=== PATIENT | female | born 1935 | race Caucasian/White ===

== ENCOUNTER 2017-01-19 13:47 | Emergency (ER) | payer MEDICARE, OTHER ==
[~2017-01-19] VITALS: Ht 154.9 cm; Wt 63.5 kg
[~2017-01-19 13:47] MED LIST: ACET-704 PO; AMIT10TA PO; CALC0.25 PO; CLOP75TA PO; CRESTOR5 MG PO; GLIP5TAB10 PO; METO-239 PO; SITA25TA PO
[2017-01-19] MEDS ORDERED: HYDROcodone/APAP 5/325MG 1 TAB TABLET PO STA (14:40)
[2017-01-19] MEDS ORDERED: fentaNYL PF VIAL 100 MCG/2 ML VIAL IV PRN (15:15)
--- NOTE | 2017-01-19 15:18 | PHYS DOC ---
Past Medical History Past Medical History: A-Fib, Diabetes-Type II, Hypertension, Other Additional Past Medical Histor: Early stages of Dementia. Past Surgical History: Appendectomy, Cholecystectomy, Hysterectomy, Pacemaker, Tonsillectomy, Other Additional Past Surgical Histo: R)hip,L) rotator cuff Alcohol Use: None Drug Use: None Adult General Chief Complaint Chief Complaint: UPPER EXTREMITY PAIN HPI HPI Patient is a 81 year old female brought to the ED by family members after a fall in the home. She fell on a slippery tile floor, her shoe fell off and she was wearing slippery toes. She fell onto her left side. She had to be helped up but then she was able to ambulate with assistance out to the vehicle. At this time she is complaining of left shoulder pain primarily. The patient has dementia and family members contribute to the history. The patient denies other pain originally. Review of Systems Review of Systems Review of systems not obtained because the patient has dementia and is not answering questions reliably Current Medications Current Medications Current Medications Medications (Trade) Dose Ordered Sig/Georg[place] Start Time Stop Time Status Last Admin Dose Admin Acetaminophen/ Hydrocodone Bitart (Lortab 5/325) 1 tab 1X STAT 01/19/17 14:40 01/19/17 14:46 DC 01/19/17 14:53 1 TAB Fentanyl Citrate (Fentanyl 2ml Vial) 50 mcg PRN Q15MIN PRN 01/19/17 15:15 01/19/17 18:01 DC 01/19/17 15:26 50 MCG Allergies Allergies Allergies Coded Allergies Type Severity Reaction Last Updated Verified Iodinated Contrast Media - IV Dye Allergy Unknown Affects pt's Immune system. 08/24/13 Yes Physical Exam Physical Exam Constitutional: Well developed, well nourished, no acute distress, non-toxic appearance. Alert, appears to be mentating at her baseline, is verbal. HENT: Normocephalic, atraumatic, bilateral external ears normal, nose normal. [ ] Eyes: conjunctiva normal, no discharge. [] Neck: Normal range of motion, no tenderness, no stridor. [] Skin: Warm, dry, no erythema, no rash. Right forearm has a small skin tear. Extremities: Right upper and right lower extremity without tenderness or deformity. Left upper extremity has been placed in a sling by ED RN. Clavicle nontender. Shoulder area appears swollen and diffusely tender. No significant deformity. Humerus tender to palpation. Elbow, forearm, wrist and hand nontender without deformity. Left hip tender to lateral pressure, she does complain of left hip pain with flexion of the knee, she is able to tolerate passive flexion but it is painful, slight adduction is also painful, right hip unremarkable. Left knee distally nontender without swelling or deformity. Neurologic: Alert and oriented X 3, normal motor function, normal sensory function, no focal deficits noted. [] Current Patient Data Vital Signs Vital Signs Date Time Temp Pulse Resp B/P (MAP) Pulse Ox O2 Delivery O2 Flow Rate FiO2 01/19/17 16:30 68 175/82 (113) Room Air 01/19/17 15:26 18 92 01/19/17 13:56 97.8 97.8 EKG EKG [] Radiology/Procedures Radiology/Procedures Three-view x-ray of the left shoulder read by the radiologist. Fracture of the neck of the left humerus with some comminution and displacement. Pelvis and left hip x-rays read by the radiologist. No acute fracture. [] Course & Med Decision Making Course & Med Decision Making Pertinent Labs and Imaging studies reviewed. (See chart for details) 81-year-old female presents after a fall in the home. She was given a hydrocodone prior to my evaluation but continues to complain of pain, we will give her some IV pain medicine prior to x-rays. X-rays show a left proximal humerus fracture. The patient was placed in a Velcro shoulder immobilizer. I had a discussion with the patient, her who she lives with, and her granddaughter who lives close by them and is very supportive. I offered hospital admission. I'm somewhat skeptical of how well this patient will be able to manage at home. She will be off balance with her shoulder immobilized. I discussed this at length with the patient and her family. He really want the patient to be able to go home and feel that they will be able to support her at home. The patient was given a trial of ambulation by ED RN who informed me that she is also a bit concerned about the patient's steadiness but that she did pass the trial of ambulation in the patient, her , and they're granddaughter are all in favor of discharge to home. She does not have stairs in the home that she has to go up and down. She has a bedside commode. I believe they are capable of making the decision to take the patient home so she will be discharged. See instructions for plan. [] Arden Disclaimer Arden Disclaimer This electronic medical record was generated, in whole or in part, using a voice recognition dictation system. Departure Departure Impression: Primary Impression: Closed fracture of left proximal humerus Disposition: HOME, SELF-CARE Condition: STABLE Referrals: CODEY DOWD (PCP) IVAN PALMER MD Patient Instructions: Humerus Fracture, Treated with Immobilization, Easy-to- Read, Shoulder Immobilizer Additional Instructions: We want to keep the broken shoulder from moving, wear the immobilizer at all times except if necessary to briefly remove it to take a sponge bath. Ice 15-20 minutes out of every 1-2 hours especially for the first 3-5 days. Do not use heat. Use only ice. For pain, hydrocodone as prescribed. This is an opiate. It will be sedating and constipating. Be very careful with ambulation because she will be off balance because of the shoulder immobilizer. Ambulate with assistance and slowly at all times. Call tomorrow for orthopedic follow-up, see referrals given. Scripts Hydrocodone/Apap 5-325 (NORCO 5-325 TABLET) 1 Each Tablet 1-2 TAB PO Q4-6HRS for humerus fracture, #20 TAB Prov: MARCIO ROQUE MD 01/19/17 MARCIO ROQUE MD Jan 19, 2017 15:18
--- NOTE | 2017-01-19 16:02 | RAD ---
Two view left shoulder radiographs 01/19/2017 Clinical history: Left shoulder pain post fall. Portable AP and 2 transscapular digital radiographs of the left shoulder were obtained. There is diffuse osteopenia of the visualized bony structures. A pacemaker overlies the left anterior chest. A small threaded screw is seen within the left humeral head. An acute comminuted fracture of the left humeral neck is seen. This extends to involve the greater tuberosity. Mild to moderate degenerative changes are seen involving the left glenohumeral joint and left AC joint. Impression: Acute comminuted fracture of the left humeral neck as outlined above.
--- NOTE | 2017-01-19 16:08 | RAD ---
AP pelvis radiograph to include a AP and lateral radiographs of the left hip 01/19/2017 Clinical history: Left hip pain after fall around noon today. An AP digital radiograph of the pelvis to include both hips was obtained. AP and 2 lateral digital radiographs of the left hip were obtained. The patient is status post left hip replacement. The prosthetic components are intact. There is diffuse osteopenia of the visualized bony structures. No pelvic bone fracture is seen. No fracture or dislocation of either hip is noted. Moderate degenerative changes are seen involving the lower lumbar spine and right hip. Atherosclerotic calcification of the common femoral arteries and their branches is seen. Impression: No acute fracture or dislocation is seen.
[2017-01-19 16:30] VITALS: BP 175/82
[2017-01-19] MEDS ORDERED: HYDR-971 PO (17:27)
== END 2017-01-19 18:00 | disposition home or self-care (01) ==
LOC: ER 13:47
DX: S42.202A Unspecified fracture of upper end of left humerus, initial encounter for closed fracture (principal); I48.91 Unspecified atrial fibrillation; I10 Essential (primary) hypertension; F03.90 Unspecified dementia, unspecified severity, without behavioral disturbance, psychotic disturbance, mood disturbance, and anxiety; E11.9 Type 2 diabetes mellitus without complications; Z95.0 Presence of cardiac pacemaker; Z96.642 Presence of left artificial hip joint; Z90.710 Acquired absence of both cervix and uterus; Z90.49 Acquired absence of other specified parts of digestive tract; Z91.041 Radiographic dye allergy status; W01.0XXA Fall on same level from slipping, tripping and stumbling without subsequent striking against object, initial encounter; Y93.89 Activity, other specified; Y99.8 Other external cause status; Y92.89 Other specified places as the place of occurrence of the external cause
CPT/HCPCS: 29105; 73030; 73502; 96374; 99284; J3010